=== PATIENT | male | born 1970 | race Native Hawaiian/Other Pacific Islander ===

== ENCOUNTER 2016-11-12 08:24 | Day surgery (SDC) | payer OTHER ==
[2016-10-08 09:28] VITALS: BMI 26.6
[2016-11-12] MEDS ORDERED: HYDROmorphone 0.5 mg/0.5 ml ISec IVP PRN (08:56)
[2016-11-12] MEDS ORDERED: Lidocaine 1% Inj (20ml) ONE (09:13)
[2016-11-12] MEDS ORDERED: ceFAZolin IV 2 gm in Dextrose 1 GM/50 ML BAG IVPB ONE (09:13)
[2016-11-12] MEDS ORDERED: Bupivacaine-Epi 0.25%-1:200,000 PF Inj ONE (09:13)
[2016-11-12] MEDS ORDERED: Propofol 10 mg/ml Inj (20 ML) ONE (09:27)
[2016-11-12] MEDS ORDERED: Midazolam 2 MG/2 ML VIAL ONE (09:27)
[2016-11-12] MEDS ORDERED: Lactated Ringer's 1,000 ML IV ONE (09:35)
[2016-11-12] MEDS ORDERED: Oxycodone/Acetaminophen 5/325 mg Tab PO PRN (10:26)
--- NOTE | 2016-11-12 10:26 | PCM.SURG1 ---
Surgeon's Initial Post Op Note - Surgeon's Notes Surgeon: Seamus Destination Specialist: Melchor Pre-Operative Diagnosis: post-auricular lesion Operative Findings: fluid filled post-auricular lesion Post-Operative Diagnosis: Fluid filled post auricular lesion Operation Performed: excision of post auricular fluid filled lesion Specimen/Specimens Removed: wall of post-auricular lesion Estimated Blood Loss: EBL {In ML}: 10 Date of Surgery/Procedure: 11/12/16 Time of Surgery/Procedure: 09:30
[2016-11-12 10:35] VITALS: O2SAT 100
[2016-11-12 11:19] VITALS: TEMP 97.5
[2016-11-12 14:02] VITALS: BP 126/67; PULSE 59; RESP 16
--- NOTE | 2016-12-02 14:32 | PCM.OP ---
Operative Report - Operative Report Date of Surgery/Procedure: 11/12/16 Time of Surgery/Procedure: 11:00 Surgeon: Efren Way MD Fruit Peeler: Gama Roche MD Anesthesia/Sedation: Local; administered before operation Pre-Operative Diagnosis: Right postauricular sebaceous cyst. Post-Operative Diagnosis: Right postauricular sebaceous cyst. Indication for Surgery: Post Auricular sebaceous cyst Operative Findings: Patient had approximately 3 cm x 3 cm sebaceous cyst of right postauricular region. Procedure/Operation Description: Excision of right postauricular sebaceous cyst , approximately 3 cm x 3 cm. 46 y/o male who was diagnosed with sebaceous cyst of the right postauricular area. Patient was consented for excision of the sebaceous cyst. Brought to the OR, placed in lateral position. Right postauricular area was prepped and draped. A transverse 3 cm incision was made in the subcutaneous tissue and the sebaceous cyst was identified and was completely excised with the surrounding capsule all the way down to the subcutaneous tissue. After proper irrigation, the wound was closed in two layers. The subcu with the 2-0 vicryl and 4-0 monocryl and dry steri-strips applied. Patient tolerated procedure well. Count of instruments was correct. There were no apparent complications. Estimated Blood Loss: 10 cc Complications: None Specimen: Some of the cyst was sent to pathology Discharge & Condition: Stable
== END 2016-11-12 11:37 | disposition home or self-care (01) ==
LOC: C.SDS 08:24
PROVIDERS: ATTEND Surgery Surgical Critical Care
DX: L72.3 Sebaceous cyst (principal)
CPT/HCPCS: 69145; 88305; J0690; J2250; J2704; J3010; J7120

== ENCOUNTER 2018-06-12 17:38 | Emergency (ER) | payer OTHER ==
[2018-06-12 17:38] VITALS: BMI 26.6
[2018-06-12 17:48] VITALS: BP 154/95; PULSE 112; RESP 18; TEMP 97.5; O2SAT 97
--- NOTE | 2018-06-12 18:52 | C.PDOC ---
History Of Present Illness 47 y/o male brought in by ambulance after he had an argument at home with his family. Patient admits to drinking alcohol and has no medical complaints currently. Time Seen by Provider: 06/12/18 18:08 Chief Complaint (Nursing): Substance Abuse History Per: EMS History/Exam Limitations: no limitations Onset/Duration Of Symptoms: Hrs Current Symptoms Are (Timing): Still Present Past Medical History Reviewed: Historical Data, Nursing Documentation, Vital Signs Vital Signs: Last Vital Signs Temp 97.5 F L 06/12/18 17:45 Pulse 112 H 06/12/18 17:45 Resp 18 06/12/18 17:45 BP 154/95 H 06/12/18 17:45 Pulse Ox 97 06/12/18 17:45 - Medical History PMH: Denies: Chronic Kidney Disease Family History: States: No Known Family Hx - Social History Hx Alcohol Use: Yes Hx Substance Use: No Review Of Systems Except As Marked, All Systems Reviewed And Found Negative. Physical Exam - Physical Exam Appears: Non-toxic, No Acute Distress, Other (alcohol on breath) Skin: Warm, Dry Head: Atraumatic, Normacephalic Eye(s): bilateral: Normal Inspection Oral Mucosa: Moist Neck: Supple Cardiovascular: Rhythm Regular, No Murmur Respiratory: Normal Breath Sounds, No Rales, No Rhonchi, No Wheezing Gastrointestinal/Abdominal: Soft, No Tenderness Extremity: Bilateral: Atraumatic, Normal Color And Temperature, Normal ROM Neurological/Psych: Oriented x3, Normal Speech ED Course And Treatment O2 Sat by Pulse Oximetry: 97 (RA) Pulse Ox Interpretation: Normal Medical Decision Making Medical Decision Making: Impression: Altercation and alcohol use Plan: --Glucose repeat pulse - 94 bpm 2014 - informed that patient has eloped. Disposition Counseled Patient/Family Regarding: Studies Performed - Disposition Disposition: ELOPEMENT - ER ONLY Disposition Time: 20:16 Condition: STABLE Forms: [facility] (Kyrgyz) - Clinical Impression Clinical Impression: Alcohol intoxication - Scribe Statement The provider has reviewed the documentation as recorded by the Ursula Solis Provider Attestation: All medical record entries made by the Patricioibcuca were at my direction and personally dictated by me. I have reviewed the chart and agree that the record accurately reflects my personal performance of the history, physical exam, medical decision making, and the department course for this patient. I have also personally directed, reviewed, and agree with the discharge instructions and disposition.
== END 2018-06-12 20:01 | disposition left against medical advice (07) ==
LOC: C.ER 17:38
DX: F10.129 Alcohol abuse with intoxication, unspecified (principal); Y90.9 Presence of alcohol in blood, level not specified